=== PATIENT | male | born 1935 | race African-American/Black ===

== ENCOUNTER → 2017-04-10 | Outpatient (CLI) | payer MEDICARE, MEDICAID ==
[~2017-04-10] MED LIST: ASPI-1079; LEVE500T19; LISI1TAB11; MEMA28CA
== END | disposition home or self-care (01) ==
LOC: RAD 08:43
PROVIDERS: ATTEND Internal Medicine Pulmonary Disease
DX: R47.02 Dysphasia (principal); R05 Cough
CPT/HCPCS: 74230

== ENCOUNTER → 2019-04-22 | Day surgery (SDC) | payer MEDICARE, MEDICAID ==
[~2019-04-22] VITALS: Ht 175.3 cm; Wt 56.2 kg
[~2019-04-22] MED LIST changes: +ATOR20TA65 PO; +BACITRACIN 15GM TUBE TOP ONE; +BACITRACIN 50,000 UNITS/VIAL ONE; +BUPIVACAINE HCL/PF 0.5% (5MG/ML) 10ML ONE; +DESMOPRESSIN ACETATE 4MCG/ML AMP ONE; +FENTANYL CITRATE/PF 50MCG/ML 2ML VIAL ONE; +FINA5TAB11 PO; +GLYCOPYRROLATE 0.2 MG/ML 2ML VIAL ONE; +HEPARIN 1000 UNITS/ML 10ML ONE; +HEPARIN 5000 UNITS/ML VIAL ONE; +HEPARIN SODIUM 1,000 UNIT/1ML VIAL IV ONE; +HYDROMORPHONE HCL/PF 2MG/ML CPJ IV PRN; -LEVE500T19; +LEVE500T19 PO; +LIDOCAINE HCL 1% 20ML VIAL (Pyxis) INJ ONE; +METOCLOPRAMIDE HCL 10MG/2ML VIAL ONE; +MIDAZOLAM HCL 2 MG/2 ML VIAL ONE; +MORPHINE SULFATE 2 MG/ML CPJ (NOT FOR IM USE) IV PRN; +NORMAL SALINE 0.9% 10 ML SYR ONE; +ONDANSETRON HCL 4MG/2ML INJ IV PRN; +ONDANSETRON HCL 4MG/2ML INJ ONE; +PAPAVERINE HCL 30 MG/ML 2ML IV ONE; +PROPOFOL 200MG/20ML VIAL IV ONE; +PROTAMINE SULFATE 10MG/ML VIAL 5ML IV ONE; +SODIUM CHLORIDE 0.9% 1,000 ML IV ONE; +SODIUM CHLORIDE 0.9% 1,000 ML IV SCH; +SUCCINYLCHOLINE CHLORIDE 200MG/10ML IV ONE; +THROMBIN (BOVINE) 5000 UNITS/VIAL TOP ONE
[2019-04-22 08:47] LABS: BASOPHILS % 0.1 % (0.0-2.0); EOSINOPHILS % 1.5 % (0.0-5.0); HEMATOCRIT. 32.4 % (42.0-52.0); HEMOGLOBIN. 10.6 g/dL (14.0-18.0); LYMPHOCYTES % 46.2 % (20.0-50.0); MEAN CORPUSCULAR HEMOGLOBIN 31.5 pg (28.0-32.0); MEAN CORPUSCULAR VOLUME 96.7 fL (80.0-94.0); MEAN PLATELET VOLUME 9.1 fl (7.4-10.4); MONOCYTES % 4.6 % (2.0-8.0); NEUTROPHILS % 47.6 % (40.0-76.0); PLATELET 130 x1000/uL (130-400); RED BLOOD CELL COUNT 3.35 mill/uL (4.7-6.1); RED CELL DISTRIBUTION WIDTH 14.5 % (11.6-14.6)
[2019-04-22 08:56] LABS: PARTIAL THROMBOPLASTIN TIME 27.3 sec (23.4-31.0); PROTHROMBIN TIME 10.7 sec (9.6-11.0)
== END | disposition home or self-care (01) ==
LOC: OR 06:43
PROVIDERS: ATTEND Surgery Vascular Surgery
DX: I70.238 Atherosclerosis of native arteries of right leg with ulceration of other part of lower leg (principal); L97.818 Non-pressure chronic ulcer of other part of right lower leg with other specified severity; F03.90 Unspecified dementia, unspecified severity, without behavioral disturbance, psychotic disturbance, mood disturbance, and anxiety; G40.909 Epilepsy, unspecified, not intractable, without status epilepticus; Z86.73 Personal history of transient ischemic attack (TIA), and cerebral infarction without residual deficits; I25.10 Atherosclerotic heart disease of native coronary artery without angina pectoris; E46 Unspecified protein-calorie malnutrition; I10 Essential (primary) hypertension; D64.9 Anemia, unspecified
CPT/HCPCS: 35656; 36415; 71045; 80048; 85025; 85610; 85730; 93005; C1768; J0330; J1644; J2250; J2405; J2704; J2720; J2765; J3010; J3490; J2440; J2597